=== PATIENT | female | born 1945 | race Two or more races ===

== ENCOUNTER 2025-02-17 11:05 | Inpatient (IN) | payer MEDICARE, OTHER ==
[~2025-02-17] VITALS: Ht 154.9 cm; Wt 60.3 kg
[2025-02-17] MEDS: LACTATED RINGER'S 1,350 ML IV ONE (11:47)
--- NOTE | 2025-02-17 12:02 | DVH ---
INDICATION: weakness TECHNIQUE: Frontal view of the chest. COMPARISON: None FINDINGS: . The heart and mediastinal contours are grossly unremarkable. There is no evidence of pleural disea se. The lungs are clear. The bony structures of the chest are intact without fracture. IMPRESSION: 1. No evidence of acute disease.
[2025-02-17 12:06] LABS: Hematocrit 39.9 % (36.0-46.0); Hemoglobin 13.4 g/dL (12.2-16.2); Mean Corpuscular Hemoglobin 28.6 pg (28.0-32.0); Mean Corpuscular Volume 85.1 fL (80.0-100.0); Nucleated Red Blood Cells % 0.0 %
--- NOTE | 2025-02-17 12:16 | ED.PDOC ---
History of Present Illness HPI Comments 79 year old female with PMHx HLD presents to the ED with a chief complaint of generalized weakness onset 3 days. Patient states she has been experiencing generalized weakness, fever, chills, body aches, nausea, back pain for the past 3 days. Patient is visiting from [place] of state, leaves tomorrow morning. Denies numbness/tingling, dizziness, chest pain, shortness of breath, vomiting, diarrhea, dysuria, hematuria, cough, congestion, sore throat. No other symptoms or modifying factors present at this time. Chief Complaint: General Weakness Time Seen by MD: 12:05 Reviewed Notes: Medications, Allergies Allergies: Coded Allergies: Alendronate (Verified Allergy, Unknown, 02/17/25) Information Source: Patient, Spouse Mode of Arrival: Ambulatory Severity: Moderate Timing: Days Duration: Since onset Prehospital treatment: None Past Medical History PAST MEDICAL HISTORY: High Lipids Surgical History: Denies all surgeries RU[employer]ER [employer] History: No Pertinent RU[employer]ER [employer]ER History Family History Family History: Reviewed,noncontributory to illness, No family hx of Cancer, No family hx of DM, No family hx of Heart jennie, No family hx of HTN, No family hx ofKidney jennie, No family hx of Liver jennie, No family hx of Lung jennie, No family hx of Stroke Social History Smoker: Non-Smoker Alcohol: Denies ETOH Use Drugs: Denies Drug Use Lives In: Home Constitutional: reports: chills, fever, weakness, others (generalized body aches); denies: diaphoresis, fatigue, malaise, sweats EENTM: denies: blurred vision, double vision, ear bleeding, ear discharge, ear drainage, ear pain, ear ringing, eye pain, eye redness, hearing loss, mouth pain, mouth swelling, nasal discharge, nose bleeding, nose congestion, nose pain, photophobia, tearing, throat pain, throat swelling, voice changes, others Respiratory: denies: cough, hemoptysis, orthopnea, SOB at rest, shortness of breath, SOB with excertion, stridor, wheezing, others Cardiovascular: denies: chest pain, dizzy spells, diaphoresis, Dyspnea on exertion, edema, irregular heart beat, left arm pain, lightheadedness, palpitations, PND, syncope, others Gastrointestinal: reports: nausea; denies: abdomen distended, abdominal pain, blood streaked bowels, constipated, diarrhea, dysphagia, difficulty swallowing, hematemesis, melena, poor appetite, poor fluid intake, rectal bleeding, rectal pain, vomiting, others Genitourinary: denies: abnormal vagina bleeding, burning, dyspareunia, dysuria, flank pain, frequency, hematuria, incontinence, pain, , vagina discharge, urgency, others Neurological: reports: weakness; denies: dizziness, fainting, headache, left sided numbness, left sided weakness, numbness, paresthesia, pre-existing deficit, right sided numbness, right sided weakness, seizure, speech problems, tingling, tremors, others Musculoskeletal: reports: back pain; denies: gout, joint pain, joint swelling, muscle pain, muscle stiffness, neck pain, others Integumetry: denies: bruises, change in color, change in hair/nails, dryness, laceration, lesions, lumps, rash, wounds, others Allergic/Immunocompromised: denies: Difficulty Healing, Frequent Infections, Hives, Itching, others Hematologic/Lymphatic: denies: anemia, blood clots, easy bleeding, easy bruising, swollen glands, others Endocrine: denies: excessive hunger, excessive sweating, excessive thirst, excessive urination, flushing, intolerance to cold, intolerance to heat, unexplained weight gain, unexplained weight loss, others Psychiatric: denies: anxiety, bipolar disorder, depression, hopeless, panic disorder, schizophrenia, sleepless, suicidal, others All Other Systems: Reviewed and Negative Physical Exam General Appearance: Normal HEENT: Normal ENT Inspection, Pharynx Normal, TMs Normal Neck: Full Range of Motion, Non-Tender, Normal, Normal Inspection Respiratory: Chest Non-Tender, Lungs Clear, No Accessory Muscle Use, No Respiratory Distress, Normal Breath Sounds Cardiovascular: No Edema, No JVD, No Murmur, No Gallop, Normal Peripheral Pulses, Regular Rate/Rhythm Breast Exam: Deferred Gastrointestinal: No Organomegaly, Non Tender, No Pulsatile Mass, Normal Bowel Sounds, Soft Genitalia: Deferred Pelvic: Deferred Rectal: Deferred Extremities: No calf tenderness, Normal capillary refill, Normal inspection, Normal range of motion, Non-tender, No pedal edema Musculoskeletal : Apperance: Normal Neurologic: Alert, [employer] cosmetics II-XII nml as Tested, No Motor Deficits, Normal Affect, Normal Mood, No Sensory Deficits Cerebellar Function: Normal Reflexes: Normal Skin: Dry, Normal Color, Warm Lymphatic: No Adenopathy Was a procedure done? Was a procedure done?: No Differential Dx Considerations may include: acs, cva, viral syndrome, pneumonia, uti, sepsis X-Ray, Labs, Meds, VS Vital Signs Date Time Temp Pulse Resp B/P (MAP) Pulse Ox O2 Delivery O2 Flow Rate FiO2 02/17/25 12:45 110 16 91 Room Air* 0 21 02/17/25 12:18 118 19 95 Room Air 02/17/25 12:18 102.1 118 16 119/68 (85) 95 102.1 02/17/25 11:12 Room Air* 0 21 02/17/25 11:10 100.7 119 17 112/74 98 100.7 Lab Test 02/17/25 11:50 02/17/25 11:34 Range/Units POC Glucose 131 H 70-106 mg/dl White Blood Count 16.2 H 4.4-10.8 10^3/uL Red Blood Count 4.69 4.0-5.20 10^6/uL Hemoglobin 13.4 12.2-16.2 g/dL Hematocrit 39.9 36.0-46.0 % Mean Corpuscular Volume 85.1 80.0-100.0 fL Mean Corpuscular Hemoglobin 28.6 28.0-32.0 pg Mean Corpuscular Hemoglobin Concent 33.6 32.0-36.0 g/dL Red Cell Distribution Width 14.2 11.8-14.3 % Platelet Count 127 L 140-450 10^3/uL Mean Platelet Volume 9.3 6.9-10.8 fL Neutrophils (%) (Auto) 89.0 H 37.0-80.0 % Lymphocytes (%) (Auto) 5.0 L 10.0-50.0 % Monocytes (%) (Auto) 5.8 0.0-12.0 % Eosinophils (%) (Auto) 0.0 0.0-7.0 % Basophils (%) (Auto) 0.2 0.0-2.0 % Neutrophils # (Auto) 14.4 H 1.6-8.6 10 ^3/uL Lymphocytes # (Auto) 0.8 0.4-5.4 10 ^3/uL Monocytes # (Auto) 0.9 0-1.3 10 ^3/uL Eosinophils # (Auto) 0 0-0.8 10 ^3/uL Basophils # (Auto) 0 0-0.2 10 ^3/uL Nucleated Red Blood Cells 0.0 % Prothrombin Time 11.5 9.3-11.8 sec Prothrombin Time INR 1.09 0.9-1.15 Activated Partial Thromboplast Time 32.2 24.5-34.5 SEC Sodium Level 133 L 136-145 mmol/L Potassium Level 3.6 3.5-5.1 mmol/L Chloride Level 96 L 98-107 mmol/L Carbon Dioxide Level 26 20-31 mmol/L Anion Gap 11 5-15 Blood Urea Nitrogen 15 9-23 mg/dL Creatinine 0.97 0.550-1.02 mg/dL Glomerular Filtration Rate Calc 60 >90 mL/min BUN/Creatinine Ratio 15.5 10.0-20.0 Serum Glucose 119 H 74-106 mg/dL Lactic Acid Level 1.5 0.4-2.0 mmol/L Calcium Level 9.1 8.7-10.4 mg/dL Total Bilirubin 1.0 0.2-1.0 mg/dL Aspartate Amino Transferase (AST) 18 13-40 U/L Alanine Aminotransferase (ALT) 13 7-40 U/L Alkaline Phosphatase 82 46-116 U/L Total Protein 7.5 5.7-8.2 g/dL Albumin 4.6 3.2-4.8 g/dL Current Medications Medications (Trade) Dose Ordered Sig/John Route Start Time Stop Time Status Last Admin Lactated Ringer's 1,350 ml @ 1,350 mls/hr ONCE ONCE IV 02/17/25 11:30 02/17/25 12:29 DC 02/17/25 11:47 Cefepime HCl 50 ml @ 12.5 mls/hr ONCE STAT IV 02/17/25 11:16 02/17/25 15:15 02/17/25 12:31 Acetaminophen (Ofirmev) 1,000 mg ONCE ONCE IV 02/17/25 12:30 02/17/25 12:31 DC 02/17/25 12:55 Ondansetron HCl (Zofran) 4 mg ONCE ONCE IV 02/17/25 12:30 02/17/25 12:31 DC 02/17/25 12:54 [facility] [id number] [address] Ph: [phone] DIAGNOSTIC IMAGING Diagnostic Imaging Report : [id number] Signed PATIENT: JAISON BART: [id number] UNIT: [id number] : 1945 LOC: ER ROOM / BED: / AGE / SEX: 79 / F ADM STATUS: REG ER SERVICE [id number] ORDERING PHYSICIAN: KATHIA PEREZ MD PROCEDURE(s): CXRP - CHEST PORTABLE REASON: weakness ORDER NUMBER(s): [id number], ACCESSION NUMBER(s): [id number] INDICATION: weakness TECHNIQUE: Frontal view of the chest. COMPARISON: None FINDINGS: . The heart and mediastinal contours are grossly unremarkable. There is no evidence of pleural disease. The lungs are clear. The bony structures of the chest are intact without fracture. IMPRESSION: 1. No evidence of acute disease. ATED BY: LISA LIMA MD DICTATED DATE/TIME: 02/17/25 1200 SIGNED BY: LISA LIMA MD SIGNED DATE/TIME: 02/17/25 1200 CC: Time of 1ST Reevaluation: 12:35 Reevaluation 1ST: Unchanged Patient Education/Counseling: Diagnosis, Treatment, Prognosis Family Education/Counseling: Diagnosis, Treatment, Prognosis SEPSIS Sepsis Screen Date sepsis recognized/suspect: Feb 17, 2025 Time Sepsis recognized/suspect: 1110 Recent Procedure: No On Antibiotic Therapy: No Respiratory Rate >20: No Heart Rate >90: Yes Temp<36 C (96.8 F) or >38.3 C: No SBP <90 or MAP <65 mmHG: No New Acute Mental Status Change: No Is the patient on CPAP, BIPAP,: No Physician Orders Urinalysis (02/17/25 11:16) Chest Portable (02/17/25 11:16) Accucheck (02/17/25 11:16) Blood Culture (02/17/25 11:16) Cefepime 1gm/50ml (Maxipime 1gm/50ml) (02/17/25 11:16) Notify Md If Map <65 Or Bp<90 (02/17/25 11:16) If Map<65 Start Vasopressor (02/17/25 11:16) Sepsis Reassesment After Fluid (02/17/25 12:16) Covid19 Antigen Yael (02/17/25 ) Rapid Influenza A&B (02/17/25 11:48) Vital Signs Date Time Temp Pulse Resp B/P (MAP) Pulse Ox O2 Delivery O2 Flow Rate FiO2 02/17/25 12:45 110 16 91 Room Air* 0 21 02/17/25 12:18 118 19 95 Room Air 02/17/25 12:18 102.1 118 16 119/68 (85) 95 102.1 02/17/25 11:12 Room Air* 0 21 02/17/25 11:10 100.7 119 17 112/74 98 100.7 Laboratory Tests Test 02/17/25 11:34 Lactic Acid Level 1.5 mmol/L (0.4-2.0) White Blood Count 16.2 10^3/uL (4.4-10.8) H Medications Medications Dose Ordered Sig/John Route Start Time Stop Time Status Last Admin Dose Admin Acetaminophen 1,000 mg ONCE ONCE IV 02/17/25 12:30 02/17/25 12:31 DC 02/17/25 12:55 Cefepime HCl 50 ml @ 12.5 mls/hr ONCE STAT IV 02/17/25 11:16 02/17/25 15:15 02/17/25 12:31 Lactated Ringer's 1,350 ml @ 1,350 mls/hr ONCE ONCE IV 02/17/25 11:30 02/17/25 12:29 DC 02/17/25 11:47 Ondansetron HCl 4 mg ONCE ONCE IV 02/17/25 12:30 02/17/25 12:31 DC 02/17/25 12:54 Departure 1 Departure Time of Disposition: 13:57 (Patient with concern for sepsis. We will empirically cover patient with antibiotics fluids and admit patient for further workup) Impression: Primary Impression: Sepsis Additional Impression: Generalized weakness Disposition: 09 ADMITTED INPATIENT Admit to: Tele Condition: Guarded Critical Care Note Critical Care Time?: Yes Critical care comment: Sepsis Authorized and Performed by: Kathia Perez MD Total critical care time: Approximately 42 minutes Due to a high probability of clinically significant, life threatening deteriorat ion, the patient required my highest level of preparedness to intervene emergently and I personally spent this critical care time directly and personally managing the patient. This critical care time included obtaining a history; examining the patient; pulse oximetry; ordering and review of studies; arranging urgent treatment with development of a management plan; evaluation of patient's response to treatment; frequent reassessment; and, discussions with other providers. This critical care time was performed to assess and manage the high probability of imminent, life-threatening deterioration that could result in multi-organ failure. It was exclusive of separately billable procedures and treating other patients and teaching time. Please see my other sections and the rest of the note for further information on patient assessment and treatment. Stability Stability form required: No Heart Score Heart Score: Heart Score Response (Comments) Value History N/A 0 EKG N/A 0 Age N/A 0 Risk Factors N/A 0 Troponin N/A 0 Total 0 I personally scribed for KATHIA PEREZ MD ([email or web address]) on 02/17/25 at 12:16. Electronically submitted by Tiny Kidd ([email or web address]). I personally scribed for KATHIA PEREZ MD ([email or web address]) on 02/17/25 at 12:22. Electronically submitted by Tiny Kidd ([email or web address]). KATHIA PEREZ MD Feb 17, 2025 12:16
[2025-02-17 12:22] LABS: INR 1.09 (0.9-1.15); Partial Thromboplastin Time 32.2 SEC (24.5-34.5); Prothrombin Time 11.5 sec (9.3-11.8)
[2025-02-17 12:25] LABS: Alanine Aminotransferase 13 U/L (7-40); Albumin 4.6 g/dL (3.2-4.8); Alkaline Phosphatase 82 U/L (46-116); Anion Gap 11 (5-15); BUN/Creatinine Ratio 15.5 (10.0-20.0); Bilirubin, Total 1.0 mg/dL (0.2-1.0); Blood Urea Nitrogen 15 mg/dL (9-23); Calcium 9.1 mg/dL (8.7-10.4); Carbon Dioxide 26 mmol/L (20-31); Potassium 3.6 mmol/L (3.5-5.1); Total Protein 7.5 g/dL (5.7-8.2)
[2025-02-17 12:27] LABS: Chloride 96 mmol/L (98-107); Glucose 119 mg/dL (74-106); Sodium 133 mmol/L (136-145)
[2025-02-17] MEDS: CEFEPIME 1GM/50ML 50 ML IV STA (12:31)
[2025-02-17 12:45] VITALS: PULSE 110; RESP 16; O2SAT 91
[2025-02-17] MEDS: ONDANSETRON HCL 4 MG/2 ML VIAL IV ONE (12:54)
[2025-02-17] MEDS: ACETAMINOPHEN IV 1000 MG/100ML (10MG/ML) IV ONE (12:55)
[2025-02-17 14:52] LABS: Urine Budding Yeast OCCASIONAL /hpf (None Seen); Urine Protein, UAD 1+ (Negative)
[2025-02-17 15:14] LABS: COVID19 ANTIGEN SOFIA FIA NEGATIVE (NEGATIVE)
[2025-02-17] MEDS ORDERED: ONDANSETRON HCL 4 MG/2 ML VIAL IV PRN (15:30)
[2025-02-17] MEDS ORDERED: HYDROcodone-ACET 5/325MG TAB PO PRN (15:30)
--- NOTE | 2025-02-17 16:04 | DVHPNRES ---
Progress Note Date Seen: Feb 17, 2025 Resident Creating Document: QI LEW RESIDENT Medical Necessity Reason Pt with a Central, PICC or Fol: No Subjective Review of Systems This is a 79-year-old female with past medical history of hyperlipidemia and osteoarthritis presented with chief complain of generalized weakness that started 1 week back. She complains of 3 week history of increased frequency of micturition, foul-smelling urine. She is traveling from [place] and has been indulging in outdoor activities. She reports associated fever, chills, myalgia & nausea. She denies palpitation, burning micturition injury, insect bite or foul-smelling discharge PV. She had an an episode of UTI 3 years back and she was treated with oral antibiotics. Previous hospitalization: No recent hospitalization PMHx: Hyperlipidemia, osteoarthritis PSHx: No surgical history Family history: Noncontributory Social history: Denies smoking, alcohol, recreational drug use. Full code. Lives in house alone. Home medication: Lipitor 5 mg Allergic history: alendronate ROS: Constitutional: Generalized weakness, myalgia. Denies weight loss, fever and chills. HEENT: Denies changes in vision and hearing. Respiratory: Denies shortness of breath and cough Cardiovascular: Denies chest discomfort or palpitations GI: Nausea. Denies abdominal pain, vomiting and diarrhea. : Increased urinary frequency, foul-smelling urine and generalized weakness Musculoskeletal: Denies myalgias and joint pain Skin: Denies rash and pruritus. Neurological: Denies dizziness, headache, vision or hearing problems 02/17/2025: Patient was seen at bedside today. Vitals show tachycardia, fever, tachypnea. Patient is on room air. Objective vital signs Vital Sign Date Time Temp Pulse Resp B/P (MAP) Pulse Ox O2 Delivery O2 Flow Rate FiO2 02/17/25 14:30 98.9 92 21 102/60 (74) 98.9 02/17/25 13:00 93 02/17/25 12:45 Room Air* 0 21 Examination General: Patient alert and oriented in person, place and time. Patient following commands. HEENT: Normocephalic, atraumatic, moist mucous membranes Respiratory/pulmonary: Clear lungs bilaterally, vesicular murmurs present in almost all lung davey, no associated crackles or wheezes. Cardiovascular: Normal heart sounds S1 and S2 with no associated murmurs Abdomen: Abdomen nondistended, there is no pain to palpation in any of the abdominal quadrants, no palpable masses. Extremities: There is no peripheral edema present at the lower extremities. Peripheral Pulses: 3+ Radial (R). 3+ Radial (L). 3+ Dorsalis pedis (R). 3+ Dorsalis pedis(L) Skin: No rashes or pruritus, there is no sacral edema present at this time. Neurological: Intact cranial nerves with no focal neurologic deficits laboratory and microbiology Laboratory Tests 02/17/25 11:34 Test 02/17/25 11:34 Range/Units Serum Glucose 119 H 74-106 mg/dL Problem List/Assessment/Plan Problem List/Assessment/Plan Sepsis due to UTI Complicated UTI Generalized weakness due to above Leukocytosis U/A: positive for UTI Lactic acid is WNL Blood culture, urine culture ordered IV ceftriaxone [facility], Tylenol for pain management COVID, influenza negative Repeat BMP Hyponatremia Monitor BMP Hyperlipidemia Ordered CMP DIET: Cardiac DVT PROPHYLAXIS: Lovenox GI PROPHYLAXIS: Protonix CODE STATUS: Goals of care discussed with patient at bedside for more than 36 minutes. Full code DISPOSITION: Telemetry This medical document was created using an electronic medical record system with M[employer] direct computerized dictation system. Although this document has been carefully reviewed, there may still be some phonetic and typographical errors. These areas are purely typographical due to imperfections of the software programs, and do not reflect any compromise in the patient's medical care. Patient's status and plan discussed with the patient. Case discussed with Dr. Chambers. Plan discussed with: Patient, Other (Friend) Date of Service: Feb 17, 2025 Billing Provider: LEW CHAMBERS MD Common Visit Codes: [id number] INP/OBS CARE(HIGH) QI LEW RESIDENT Feb 17, 2025 16:04
[2025-02-17] MEDS: SODIUM CHLORIDE 0.9% 1,000 ML IV SCH ×2 (16:07→18:15)
[2025-02-17] MEDS: PANTOPRAZOLE 40 MG/10 ML VIAL INJ IV ONE (16:17)
[2025-02-17 17:15] VITALS: BP 103/56; PULSE 84; RESP 17; TEMP 97.5; O2SAT 96
[2025-02-17] MEDS ORDERED: ZOLP5TAB PO (17:55)
--- NOTE | 2025-02-17 17:55 | DVHHPRES ---
History of Present Illness Resident Creating Document: MIRZA VILLALOBOS RESIDENT History of Present Illness This is a 79-year-old female with past medical history of hyperlipidemia and osteoarthritis presented with chief complain of generalized weakness that started 1 week back. She complains of 3 week history of increased frequency of micturition, foul-smelling urine. She is traveling from [place] and has been indulging in outdoor activities. She reports associated fever, chills, myalgia & nausea. She denies palpitation, burning micturition injury, insect bite or foul-smelling discharge PV. She had an an episode of UTI 3 years back and she was treated with oral antibiotics. Previous hospitalization: No recent hospitalization PMHx: Hyperlipidemia, osteoarthritis PSHx: No surgical history Family history: Noncontributory Social history: Denies smoking, alcohol, recreational drug use. Full code. Lives in house alone. Home medication: Lipitor 5 mg Allergic history: alendronate 02/17/2025: Patient was seen at bedside today. Vitals show tachycardia, fever, tachypnea. Patient is on room air. Review of Systems Review of Systems ROS: Constitutional: Generalized weakness, myalgia. Denies weight loss, fever and chills. HEENT: Denies changes in vision and hearing. Respiratory: Denies shortness of breath and cough Cardiovascular: Denies chest discomfort or palpitations GI: Nausea. Denies abdominal pain, vomiting and diarrhea. : Increased urinary frequency, foul-smelling urine and generalized weakness Musculoskeletal: Denies myalgias and joint pain Skin: Denies rash and pruritus. Neurological: Denies dizziness, headache, vision or hearing problems Allergies: Coded Allergies: Alendronate (Verified Allergy, Unknown, 02/17/25) Medications Current Medications Medications Dose Ordered Sig/John Route Start Time Stop Time Status Last Admin Dose Admin Acetaminophen/ Hydrocodone Bitart 1 tab Q4HP PRN PO 02/17/25 15:30 Ondansetron HCl 4 mg Q4HP PRN IV 02/17/25 15:30 Enoxaparin Sodium 40 mg DAILY SC 02/18/25 10:00 Acetaminophen 650 mg Q6HP PRN PO 02/17/25 15:30 Ceftriaxone Sodium 50 ml @ 100 mls/hr DAILY@09 IV 02/18/25 09:00 Pantoprazole Sodium 40 mg DAILY IV 02/18/25 10:00 Sodium Chloride 1,000 ml @ 125 mls/hr Q8H IV 02/17/25 17:30 Exam Vital Signs Vital Signs Date Time Temp Pulse Resp B/P (MAP) Pulse Ox O2 Delivery O2 Flow Rate FiO2 02/17/25 16:25 85 15 109/65 (80) 96 02/17/25 14:30 98.9 98.9 02/17/25 12:45 Room Air* 0 21 Exam General: Patient alert and oriented in person, place and time. Patient following commands. HEENT: Normocephalic, atraumatic, moist mucous membranes Respiratory/pulmonary: Clear lungs bilaterally, vesicular murmurs present in almost all lung davey, no associated crackles or wheezes. Cardiovascular: Normal heart sounds S1 and S2 with no associated murmurs Abdomen: Abdomen nondistended, there is no pain to palpation in any of the abdominal quadrants, no palpable masses. Extremities: There is no peripheral edema present at the lower extremities. Peripheral Pulses: 3+ Radial (R). 3+ Radial (L). 3+ Dorsalis pedis (R). 3+ Dorsalis pedis(L) Skin: No rashes or pruritus, there is no sacral edema present at this time. Neurological: Intact cranial nerves with no focal neurologic deficits Labs/Xrays Labs Test 02/17/25 14:19 02/17/25 11:51 02/17/25 11:50 02/17/25 11:34 Range/Units Urine Color Light-yellow Yellow Urine Clarity Turbid H Clear Urine pH 6.5 5.0-9.0 Urine Specific [place] 1.016 1.001-1.035 Urine Protein 1+ H Negative Urine Ketones 1+ H Negative Urine Blood 3+ H Negative /uL Urine Nitrite 2+ H Negative Urine Bilirubin Negative Negative Urine Urobilinogen Normal Negative mg/dL Urine Leukocyte Esterase 2+ Negative /uL Urine RBC 12 0 - 4 /hpf Urine Microscopic WBC 58 H 0-5 /HPF Urine Squamous Epithelial Cells None seen <5 /hpf Urine Bacteria Few H None Seen /hpf Urine Yeast (Budding) Occasional None Seen /hpf Urine Glucose Normal Normal mg/dL Influenza Type A Antigen Negative Negative Influenza Type B Antigen Negative Negative SARS-CoV-2 Antigen (Rapid) Negative NEGATIVE POC Glucose 131 H 70-106 mg/dl White Blood Count 16.2 H 4.4-10.8 10^3/uL Red Blood Count 4.69 4.0-5.20 10^6/uL Hemoglobin 13.4 12.2-16.2 g/dL Hematocrit 39.9 36.0-46.0 % Mean Corpuscular Volume 85.1 80.0-100.0 fL Mean Corpuscular Hemoglobin 28.6 28.0-32.0 pg Mean Corpuscular Hemoglobin Concent 33.6 32.0-36.0 g/dL Red Cell Distribution Width 14.2 11.8-14.3 % Platelet Count 127 L 140-450 10^3/uL Mean Platelet Volume 9.3 6.9-10.8 fL Neutrophils (%) (Auto) 89.0 H 37.0-80.0 % Lymphocytes (%) (Auto) 5.0 L 10.0-50.0 % Monocytes (%) (Auto) 5.8 0.0-12.0 % Eosinophils (%) (Auto) 0.0 0.0-7.0 % Basophils (%) (Auto) 0.2 0.0-2.0 % Neutrophils # (Auto) 14.4 H 1.6-8.6 10 ^3/uL Lymphocytes # (Auto) 0.8 0.4-5.4 10 ^3/uL Monocytes # (Auto) 0.9 0-1.3 10 ^3/uL Eosinophils # (Auto) 0 0-0.8 10 ^3/uL Basophils # (Auto) 0 0-0.2 10 ^3/uL Nucleated Red Blood Cells 0.0 % Prothrombin Time 11.5 9.3-11.8 sec Prothrombin Time INR 1.09 0.9-1.15 Activated Partial Thromboplast Time 32.2 24.5-34.5 SEC Sodium Level 133 L 136-145 mmol/L Potassium Level 3.6 3.5-5.1 mmol/L Chloride Level 96 L 98-107 mmol/L Carbon Dioxide Level 26 20-31 mmol/L Anion Gap 11 5-15 Blood Urea Nitrogen 15 9-23 mg/dL Creatinine 0.97 0.550-1.02 mg/dL Glomerular Filtration Rate Calc 60 >90 mL/min BUN/Creatinine Ratio 15.5 10.0-20.0 Serum Glucose 119 H 74-106 mg/dL Lactic Acid Level 1.5 0.4-2.0 mmol/L Calcium Level 9.1 8.7-10.4 mg/dL Total Bilirubin 1.0 0.2-1.0 mg/dL Aspartate Amino Transferase (AST) 18 13-40 U/L Alanine Aminotransferase (ALT) 13 7-40 U/L Alkaline Phosphatase 82 46-116 U/L B-Type Natriuretic Peptide 33.75 0-100 pg/mL Total Protein 7.5 5.7-8.2 g/dL Albumin 4.6 3.2-4.8 g/dL Lipase 33 12-53 U/L SEPSIS Sepsis Screen Date sepsis recognized/suspect: Feb 17, 2025 Time Sepsis recognized/suspect: 1109 Recent Procedure: No On Antibiotic Therapy: No Respiratory Rate >20: No Heart Rate >90: Yes Temp<36 C (96.8 F) or >38.3 C: No SBP <90 or MAP <65 mmHG: No New Acute Mental Status Change: No Is the patient on CPAP, BIPAP,: No Physician Orders Chest Portable (02/17/25 11:16) Accucheck (02/17/25 11:16) Blood Culture (02/17/25 11:16) Notify Md If Map <65 Or Bp<90 (02/17/25 11:16) If Map<65 Start Vasopressor (02/17/25 11:16) Sepsis Reassesment After Fluid (02/17/25 12:16) Admit (02/17/25 15:23) Allergies (02/17/25 15:23) Code Status (02/17/25 15:23) Hydrocodone-Acet 5/325mg Tab ([place] 5/32 (02/17/25 15:30) Ondansetron Hcl (Zofran) (02/17/25 15:30) Enoxaparin Sodium (Lovenox) (02/18/25 10:00) Complete Blood Count (02/18/25 04:00) Comprehensive Metabolic Panel (02/18/25 04:00) Cardiac Diet-2gna,Lofat,Lochol (02/17/25 Dinner) Condition: Serious (02/17/25 15:23) Acetaminophen Tablet (Tylenol Tablet) (02/17/25 15:30) Oxygen By Nasal Cannula (02/17/25 15:23) Stat Ekg For Chest Pain (02/17/25 15:23) Notify Md Of Changes From Base (02/17/25 15:23) Shop Teacher For 24 Hours (02/17/25 15:23) Emergency Dysrhythmia Protocol (02/17/25 15:23) Rhythm Strips Once Every Shift (02/17/25 15:23) Ceftriaxone 1gm/50ml (Rocephin) (02/18/25 09:00) Urine Bacterial Culture (02/17/25 15:23) Pantoprazole (Protonix) (02/18/25 10:00) Sodium Chloride 0.9% (02/17/25 17:30) Sodium Chloride 0.9% (02/17/25 17:30) Vital Signs Date Time Temp Pulse Resp B/P (MAP) Pulse Ox O2 Delivery O2 Flow Rate FiO2 02/17/25 16:25 85 15 109/65 (80) 96 02/17/25 14:30 98.9 92 21 102/60 (74) 98.9 02/17/25 13:00 110 14 101/59 (73) 93 02/17/25 12:45 110 16 91 Room Air* 0 21 02/17/25 12:18 118 19 95 Room Air 02/17/25 12:18 102.1 118 16 119/68 (85) 95 102.1 02/17/25 11:12 Room Air* 0 21 02/17/25 11:10 100.7 119 17 112/74 98 100.7 Laboratory Tests Test 02/17/25 11:34 Lactic Acid Level 1.5 mmol/L (0.4-2.0) White Blood Count 16.2 10^3/uL (4.4-10.8) H Medications Medications Dose Ordered Sig/John Route Start Time Stop Time Status Last Admin Dose Admin Acetaminophen 1,000 mg ONCE ONCE IV 02/17/25 12:30 02/17/25 12:31 DC 02/17/25 12:55 1,000 MG Cefepime HCl 50 ml @ 12.5 mls/hr ONCE STAT IV 02/17/25 11:16 02/17/25 15:15 DC 02/17/25 12:31 12.5 MLS/HR Ceftriaxone Sodium 50 ml @ 100 mls/hr ONCE ONCE IV 02/17/25 15:30 02/17/25 16:00 DC 02/17/25 16:06 100 MLS/HR Lactated Ringer's 1,350 ml @ 1,350 mls/hr ONCE ONCE IV 02/17/25 11:30 02/17/25 12:29 DC 02/17/25 11:47 1,350 MLS/HR Ondansetron HCl 4 mg ONCE ONCE IV 02/17/25 12:30 02/17/25 12:31 DC 02/17/25 12:54 4 MG Pantoprazole Sodium 40 mg ONCE ONCE IV 02/17/25 16:00 02/17/25 16:07 DC 02/17/25 16:17 40 MG Sodium Chloride 1,000 ml @ 120 mls/hr Q8H20M IV 02/17/25 15:30 02/17/25 17:22 DC 02/17/25 16:07 120 MLS/HR Assessment/Plan Assessment/Plan Sepsis due to UTI, POA Complicated UTI, POA Generalized weakness due to above Leukocytosis U/A: positive for UTI Lactic acid is WNL Blood culture, urine culture ordered IV ceftriaxone [place], Tylenol for pain management COVID, influenza negative Repeat BMP Hyponatremia Monitor BMP Hyperlipidemia Ordered CMP DIET: Cardiac DVT PROPHYLAXIS: Lovenox GI PROPHYLAXIS: Protonix CODE STATUS: Goals of care discussed with patient at bedside for more than 36 minutes. Full code DISPOSITION: Telemetry This medical document was created using an electronic medical record system with [employer] computerized dictation system. Although this document has been carefully reviewed, there may still be some phonetic and typographical errors. These areas are purely typographical due to imperfections of the software programs, and do not reflect any compromise in the patient's medical care. Patient's status and plan discussed with the patient. Case discussed with Dr. Chambers. Plan discussed with: Patient, Other (RN) Date of Service: Feb 17, 2025 Billing Provider: LEW CHAMBERS MD Common Visit Codes: [id number] INP/OBS CARE (HIGH) MIRZA VILLALOBOS RESIDENT Feb 17, 2025 17:55
[2025-02-17] MEDS ORDERED: ATOR10TA PO ×2 (17:56)
[2025-02-17] MEDS: SODIUM CHLORIDE 0.9% 500 ML IV ONE (18:16)
[2025-02-17 20:00] VITALS: PULSE 79; PULSE 97; RESP 18
[2025-02-17 21:00] VITALS: BP 112/70; PULSE 102; RESP 19; TEMP 98; O2SAT 96
[2025-02-17] MEDS: ZOLPIDEM TARTRATE 5 MG TAB PO SCH (21:34)
[2025-02-17 22:00] VITALS: RESP 18
[2025-02-18] VITALS (7 sets, daily range): BP systolic 96–119; BP diastolic 53–70; PULSE 75–121; RESP 18–20; TEMP 98–103.1; O2SAT 90–99
[2025-02-18] MEDS: ACETAMINOPHEN 325 MG TAB PO PRN (00:07)
[2025-02-18 06:27] LABS: Hematocrit 33.3 % (36.0-46.0); Hemoglobin 11.1 g/dL (12.2-16.2); Mean Corpuscular Hemoglobin 28.4 pg (28.0-32.0); Mean Corpuscular Volume 84.8 fL (80.0-100.0); Nucleated Red Blood Cells % 0.0 %
[2025-02-18 06:46] LABS: Alanine Aminotransferase 12 U/L (7-40); Albumin 3.6 g/dL (3.2-4.8); Alkaline Phosphatase 71 U/L (46-116); Anion Gap 12 (5-15); BUN/Creatinine Ratio 13.5 (10.0-20.0); Blood Urea Nitrogen 10 mg/dL (9-23); Carbon Dioxide 23 mmol/L (20-31); Chloride 104 mmol/L (98-107); Glucose 92 mg/dL (74-106); Sodium 139 mmol/L (136-145); Total Protein 5.9 g/dL (5.7-8.2)
[2025-02-18 06:47] LABS: Bilirubin, Total 0.7 mg/dL (0.2-1.0)
[2025-02-18 06:53] LABS: Calcium 7.8 mg/dL (8.7-10.4); Potassium 3.4 mmol/L (3.5-5.1)
[2025-02-18] MEDS: POTASSIUM EFFERVESENT TAB 25 MEQ PO ONE (08:55)
[2025-02-18] MEDS: PANTOPRAZOLE 40 MG/10 ML VIAL INJ IV SCH (08:56)
--- NOTE | 2025-02-18 09:28 | DVHPNRES ---
Progress Note Date Seen: Feb 18, 2025 Resident Creating Document: QI LWE RESIDENT Medical Necessity Reason Pt with a Central, PICC or Fol: No Subjective Review of Systems Brief history on arrival: This is a 79-year-old female with past medical history of hyperlipidemia and osteoarthritis presented with chief complain of generalized weakness that started 1 week back. She complains of 3 week history of increased frequency of micturition, foul-smelling urine. She is traveling from [place] and has been indulging in outdoor activities. She reports associated fever, chills, myalgia & nausea. She denies palpitation, burning micturition injury, insect bite or foul-smelling discharge PV. She had an an episode of UTI 3 years back and she was treated with oral antibiotics. Previous hospitalization: No recent hospitalization PMHx: Hyperlipidemia, osteoarthritis PSHx: No surgical history Family history: Noncontributory Social history: Denies smoking, alcohol, recreational drug use. Full code. Lives in house alone. Home medication: Lipitor 5 mg Allergic history: alendronate ROS: Constitutional: Generalized weakness, myalgia. Denies weight loss, fever and chills. HEENT: Denies changes in vision and hearing. Respiratory: Denies shortness of breath and cough Cardiovascular: Denies chest discomfort or palpitations GI: Nausea. Denies abdominal pain, vomiting and diarrhea. : Increased urinary frequency, foul-smelling urine and generalized weakness Musculoskeletal: Denies myalgias and joint pain Skin: Denies rash and pruritus. Neurological: Denies dizziness, headache, vision or hearing problems 02/17/2025: Vitals show tachycardia, fever, tachypnea. Patient is on room air. 02/18/2025: Patient was seen at bedside today. She complains of increased urinary urgency, her generalized weakness has improved. WBC count continues to trend down, urine culture pending. Objective vital signs Vital Sign Date Time Temp Pulse Resp B/P (MAP) Pulse Ox O2 Delivery O2 Flow Rate FiO2 02/18/25 08:00 Room Air* 0 21 02/18/25 05:00 98.1 80 19 96/61 (73) 94 98.1 Total Intake and Output 02/17/25 02/17/25 02/18/25 15:00 23:00 07:00 Intake Total 1375.0 ml 575.0 ml 260 ml Balance 1375.0 ml 575.0 ml 260 ml medications Current Medications Medications Dose Ordered Sig/John Route Start Time Stop Time Status Last Admin Dose Admin Acetaminophen/ Hydrocodone Bitart 1 tab Q4HP PRN PO 02/17/25 15:30 Ondansetron HCl 4 mg Q4HP PRN IV 02/17/25 15:30 Acetaminophen 650 mg Q6HP PRN PO 02/17/25 15:30 02/18/25 00:07 650 MG Ceftriaxone Sodium 50 ml @ 100 mls/hr DAILY@09 IV 02/18/25 09:00 02/18/25 08:55 100 MLS/HR Pantoprazole Sodium 40 mg DAILY IV 02/18/25 10:00 02/18/25 08:56 40 MG Sodium Chloride 1,000 ml @ 125 mls/hr Q8H IV 02/17/25 17:30 02/18/25 08:55 125 MLS/HR Zolpidem Tartrate 5 mg HS PO 02/17/25 22:00 02/17/25 21:34 5 MG Examination General: Patient alert and oriented in person, place and time. Patient following commands. HEENT: Normocephalic, atraumatic, moist mucous membranes Respiratory/pulmonary: Clear lungs bilaterally, vesicular murmurs present in almost all lung davey, no associated crackles or wheezes. Cardiovascular: Normal heart sounds S1 and S2 with no associated murmurs Abdomen: Abdomen nondistended, there is no pain to palpation in any of the abdominal quadrants, no palpable masses. Extremities: There is no peripheral edema present at the lower extremities. Peripheral Pulses: 3+ Radial (R). 3+ Radial (L). 3+ Dorsalis pedis (R). 3+ Dorsalis pedis(L) Skin: No rashes or pruritus, there is no sacral edema present at this time. Neurological: Intact cranial nerves with no focal neurologic deficits laboratory and microbiology Laboratory Tests 02/18/25 04:38 Test 02/18/25 04:38 Range/Units Serum Glucose 92 74-106 mg/dL Problem List/Assessment/Plan Problem List/Assessment/Plan Sepsis due to UTI Complicated UTI with hematuria Generalized weakness due to above Neutrophilic Leukocytosis, trending down U/A: positive for UTI Lactic acid is WNL [place], Tylenol for pain management COVID, influenza negative Continue IV ceftriaxone Blood and urine culture pending Hyponatremia, resolved Hypokalemia Monitor BMP Potassium supplemented, repeated Hyperlipidemia Ordered CMP DIET: Cardiac DVT PROPHYLAXIS: Discontinued Lovenox due to platelet count trending down. Patient is ambulatory, SCD ordered GI PROPHYLAXIS: Protonix CODE STATUS: Goals of care discussed with patient at bedside for more than 18 minutes. Full code DISPOSITION: Telemetry This medical document was created using an electronic medical record system with [employer] computerized dictation system. Although this document has been carefully reviewed, there may still be some phonetic and typographical errors. These areas are purely typographical due to imperfections of the software programs, and do not reflect any compromise in the patient's medical care. Patient's status and plan discussed with the patient. Case discussed with Dr. Chambers. Plan discussed with: Patient, Other (Nurses) My Orders My Orders Orders - QI LEW RESIDENT Procedure Category Date Status Time Admit ADMIT 02/17/25 Transmitted 15:23 Allergies [place] 02/17/25 In Process 15:23 Code Status CODE 02/17/25 Transmitted 15:23 Hydrocodone-Acet PHA 02/17/25 In Process 5/325mg Tab ([place] 15:30 Ondansetron Hcl PHA 02/17/25 In Process (Zofran) 15:30 Condition: Serious [place] 02/17/25 In Process 15:23 Acetaminophen Tablet PHA 02/17/25 In Process (Tylenol Tablet) 15:30 Oxygen By Nasal RT 02/17/25 Transmitted Cannula 15:23 Stat Ekg For Chest [place] 02/17/25 In Process Pain 15:23 Notify Md Of Changes [place] 02/17/25 In Process From Base 15:23 Shift Leader For [place] 02/17/25 In Process 24 Hours 15:23 Emergency Dysrhythmia [place] 02/17/25 In Process Protocol 15:23 Rhythm Strips Once [place] 02/17/25 In Process Every Shift 15:23 Ceftriaxone 1gm/50ml PHA 02/18/25 In Process (Rocephin) 09:00 Urine Bacterial BEN[place] 02/17/25 In Process Culture 15:23 Pantoprazole PHA 02/18/25 In Process (Protonix) 10:00 Sodium Chloride 0.9% PHA 02/17/25 In Process 17:30 Cardiac DIET 02/18/25 Transmitted Diet-2gna,Lofat,Lochol Breakfast Potassium LAB 02/18/25 Logged 12:00 Sequential [place] 02/18/25 In Process Compression Device 07:55 Date of Service: Feb 18, 2025 Billing Provider: QI LEW Common Visit Codes: [id number] INP/OBS CARE(HIGH) QI LEW RESIDENT Feb 18, 2025 09:28 LEW CHAMBERS MD Feb 20, 2025 15:02
[2025-02-18] MEDS ORDERED: ENOXAPARIN SOD 40 MG/0.4 ML SYRINGE SC SCH (10:00)
--- NOTE | 2025-02-18 12:09 | DVH ---
Indication: genraliazed weakness with urgency Technique: CT axial images of the abdomen and pelvis are obtained without contrast. Coronal and sagittal reformats were obtained. Radiation Dose Information: CTDI volume is 7.11 mGy. Dose-length product is 386.5 mGy*cm Comparison: None FINDINGS: There is limited interpretation of the abdomen and pelvis without administration of intravenous contrast. Lung bases demonstrate atelectasis. Tiny bilateral pleural effusions. Adrenal glands, spleen, pancreas and liver unremarkable in shape. No CT evidence for cholelithiasis. The kidneys demonstrate no hydronephrosis. Right perinephric edema / stranding. The stomach is partially distended. The small bowel loops are moderately distended. Colonic diverticular disease. Moderate to large volume stool in the colon. Abdominal aortic atherosclerotic disease. Bladder partially distended. No free pelvic fluid. No inguinal lymphadenopathy. [id number] bilateral sacroiliac degenerative joint disease. IMPRESSION: Limited evaluation without contrast. Right perinephric edema/ stranding. Correlate for urinary tract infection /pyelonephritis. Colonic diverticular disease. Moderate volume stool in the colon. Atherosclerotic disease. Tiny bilateral pleural effusions. Other findings as described.
--- NOTE | 2025-02-18 15:33 | DVH ---
RENAL ULTRASOUND History: Rule out obstruction in the b/l kidneys, ureteres, and blad Comparison: None Technique: Multiple real-time sonographic images of the kidney and bladder were obtained in conjunction with Doppler imaging. Findings: The right kidney measures 10.6 cm and demonstrates no evidence of hydronephrosis, perinephric fluid collection, or shadowing stone. 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 The left kidney measures 9.5 cm and demonstrates no evidence of hydronephrosis, perinephric fluid collection, or shadowing stone. Urinary bladder: Prevoid urinary bladder volume is 137 mL. Bilateral ureteral jets present. Impression: No hydronephrosis. 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 CT urogram can be obtained to further evaluate as clinically warranted.
[2025-02-19 01:00] VITALS: BP 113/77; PULSE 85; RESP 19; TEMP 97.8; O2SAT 100
[2025-02-19 05:00] VITALS: BP 129/79; PULSE 97; RESP 19; TEMP 98.3; O2SAT 94
[2025-02-19 05:22] LABS: Hematocrit 31.6 % (36.0-46.0); Hemoglobin 10.8 g/dL (12.2-16.2); Mean Corpuscular Hemoglobin 28.8 pg (28.0-32.0); Mean Corpuscular Volume 84.6 fL (80.0-100.0); Nucleated Red Blood Cells % 0.0 %
[2025-02-19 05:33] LABS: Chloride 107 mmol/L (98-107); Potassium 3.7 mmol/L (3.5-5.1); Sodium 141 mmol/L (136-145)
[2025-02-19 05:34] LABS: Anion Gap 8 (5-15); Carbon Dioxide 26 mmol/L (20-31)
[2025-02-19 05:37] LABS: Calcium 8.1 mg/dL (8.7-10.4)
[2025-02-19 05:39] LABS: BUN/Creatinine Ratio 14.8 (10.0-20.0); Blood Urea Nitrogen 9 mg/dL (9-23); Glucose 106 mg/dL (74-106)
[2025-02-19 08:00] VITALS: PULSE 87; RESP 18; O2SAT 95
[2025-02-19 09:00] VITALS: BP 136/79; PULSE 86; RESP 18; TEMP 98.6; O2SAT 95
[2025-02-19] MEDS ORDERED: CEFP200T15 PO (11:08)
--- NOTE | 2025-02-19 13:19 | DVHDSRES ---
Discharge Summary Date of Admission Resident Creating Document: QI LEW RESIDENT Feb 17, 2025 at 15:23 Date of Discharge: Feb 19, 2025 Labs/Diagnostic Data: Laboratory Results Test 02/19/25 04:39 02/18/25 04:38 02/17/25 14:19 02/17/25 11:51 White Blood Count 8.8 10^3/uL (4.4-10.8) Red Blood Count 3.74 10^6/uL (4.0-5.20) Hemoglobin 10.8 g/dL (12.2-16.2) Hematocrit 31.6 % (36.0-46.0) Mean Corpuscular Volume 84.6 fL (80.0-100.0) Mean Corpuscular Hemoglobin 28.8 pg (28.0-32.0) Mean Corpuscular Hemoglobin Concent 34.0 g/dL (32.0-36.0) Red Cell Distribution Width 15.0 % (11.8-14.3) Platelet Count 119 10^3/uL (140-450) Mean Platelet Volume 10.5 fL (6.9-10.8) Neutrophils (%) (Auto) 80.0 % (37.0-80.0) Lymphocytes (%) (Auto) 9.7 % (10.0-50.0) Monocytes (%) (Auto) 8.5 % (0.0-12.0) Eosinophils (%) (Auto) 1.4 % (0.0-7.0) Basophils (%) (Auto) 0.4 % (0.0-2.0) Neutrophils # (Auto) 7.0 10 ^3/uL (1.6-8.6) Lymphocytes # (Auto) 0.9 10 ^3/uL (0.4-5.4) Monocytes # (Auto) 0.8 10 ^3/uL (0-1.3) Eosinophils # (Auto) 0.1 10 ^3/uL (0-0.8) Basophils # (Auto) 0 10 ^3/uL (0-0.2) Nucleated Red Blood Cells 0.0 % Sodium Level 141 mmol/L (136-145) Potassium Level 3.7 mmol/L (3.5-5.1) Chloride Level 107 mmol/L (98-107) Carbon Dioxide Level 26 mmol/L (20-31) Anion Gap 8 (5-15) Blood Urea Nitrogen 9 mg/dL (9-23) Creatinine 0.61 mg/dL (0.550-1.02) Glomerular Filtration Rate Calc 91 mL/min (>90) BUN/Creatinine Ratio 14.8 (10.0-20.0) Serum Glucose 106 mg/dL (74-106) Calcium Level 8.1 mg/dL (8.7-10.4) Total Bilirubin 0.7 mg/dL (0.2-1.0) Aspartate Amino Transferase (AST) 16 U/L (13-40) Alanine Aminotransferase (ALT) 12 U/L (7-40) Alkaline Phosphatase 71 U/L (46-116) Total Protein 5.9 g/dL (5.7-8.2) Albumin 3.6 g/dL (3.2-4.8) Urine Color Light-yellow (Yellow) Urine Clarity Turbid (Clear) Urine pH 6.5 (5.0-9.0) Urine Specific [place] 1.016 (1.001-1.035) Urine Protein 1+ (Negative) Urine Ketones 1+ (Negative) Urine Blood 3+ /uL (Negative) Urine Nitrite 2+ (Negative) Urine Bilirubin Negative (Negative) Urine Urobilinogen Normal mg/dL (Negative) Urine Leukocyte Esterase 2+ /uL (Negative) Urine RBC 12 /hpf (0 - 4) Urine Microscopic WBC 58 /HPF (0-5) Urine Squamous Epithelial Cells None seen /hpf (<5) Urine Bacteria Few /hpf (None Seen) Urine Yeast (Budding) Occasional /hpf (None Urine Glucose Normal mg/dL (Normal) Influenza Type A Antigen Negative (Negative) Influenza Type B Antigen Negative (Negative) SARS-CoV-2 Antigen (Rapid) Negative (NEGATIVE) Test 02/17/25 11:50 02/17/25 11:34 POC Glucose 131 mg/dl (70-106) Prothrombin Time 11.5 sec (9.3-11.8) Prothrombin Time INR 1.09 (0.9-1.15) Activated Partial Thromboplast Time 32.2 SEC (24.5-34.5) Lactic Acid Level 1.5 mmol/L (0.4-2.0) B-Type Natriuretic Peptide 33.75 pg/mL (0-100) Lipase 33 U/L (12-53) Other Laboratory Tests 02/19/25 04:39 Brief Hx & Hospital Course: Brief history on arrival: This is a 79-year-old female with past medical history of hyperlipidemia and osteoarthritis presented with chief complain of generalized weakness that started 1 week back. She complains of 3 week history of increased frequency of micturition, foul-smelling urine. She is traveling from [place] and has been indulging in outdoor activities. She reports associated fever, chills, myalgia & nausea. She denies palpitation, burning micturition injury, insect bite or foul-smelling discharge PV. She had an an episode of UTI 3 years back and she was treated with oral antibiotics. Brief hospital course: Patients vitals showed fever, tachycardia on arrival. Initial labs revealed neutrophilic leukocytosis, urinalysis positive for UTI. Patient was started on IV fluid bolus, IV ceftriaxone, blood cultures were sent. Supportive management with Parker, Tylenol for pain management, IV maintenance fluid, electrolytes monitored and repleted. CT scan shows Right perinephric edema/ stranding, representing urinary tract infection /pyelonephritis. Renal Ultrasound shows no hydronephrosis, possible duplication of the right renal collecting system. The finding of a duplex renal collecting system was explained to the patient in great detail, patient was instructed to follow up with her PCP for a CT urogram, patient notes he follows with a urologist in [place] Dr. Chandler, patient was encouraged to follow up with him at her earliest convenience, patient demonstrated understanding. Patient's clinical condition improved, labs show WBCs within normal limits now. Patient is stable for discharge on oral Antibiotics. 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 for 10 days Continue home medications Follow up with PCP in one week Follow up with Urology in outpatient clinic for CT urogram Operations or Procedures Indication: genraliazed weakness with urgency Technique: CT axial images of the abdomen and pelvis are obtained without contrast. Coronal and sagittal reformats were obtained. Radiation Dose Information: CTDI volume is 7.11 mGy. Dose-length product is 386.5 mGy*cm Comparison: None FINDINGS: There is limited interpretation of the abdomen and pelvis without administration of intravenous contrast. Lung bases demonstrate atelectasis. Tiny bilateral pleural effusions. Adrenal glands, spleen, pancreas and liver unremarkable in shape. No CT evidence for cholelithiasis. The kidneys demonstrate no hydronephrosis. Right perinephric edema / stranding. The stomach is partially distended. The small bowel loops are moderately distended. Colonic diverticular disease. Moderate to large volume stool in the colon. Abdominal aortic atherosclerotic disease. Bladder partially distended. No free pelvic fluid. No inguinal lymphadenopathy. [id number] bilateral sacroiliac degenerative joint disease. IMPRESSION: Limited evaluation without contrast. Right perinephric edema/ stranding. Correlate for urinary tract infection /pyelonephritis. Colonic diverticular disease. Moderate volume stool in the colon. Atherosclerotic disease. Tiny bilateral pleural effusions. Other findings as described. RENAL ULTRASOUND History: Rule out obstruction in the b/l kidneys, ureteres, and blad Comparison: None Technique: Multiple real-time sonographic images of the kidney and bladder were obtained in conjunction with Doppler imaging. Findings: The right kidney measures 10.6 cm and demonstrates no evidence of hydronephrosis, perinephric fluid collection, or shadowing stone. 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 The left kidney measures 9.5 cm and demonstrates no evidence of hydronephrosis, perinephric fluid collection, or shadowing stone. Urinary bladder: Prevoid urinary bladder volume is 137 mL. Bilateral ureteral jets present. Impression: No hydronephrosis. 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 CT urogram can be obtained to further evaluate as clinically warranted. INDICATION: weakness TECHNIQUE: Frontal view of the chest. COMPARISON: None FINDINGS: . The heart and mediastinal contours are grossly unremarkable. There is no evidence of pleural disease. The lungs are clear. The bony structures of the chest are intact without fracture. IMPRESSION: 1. No evidence of acute disease. 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 Generalized weakness due to above Hyponatremia, resolved Hypokalemia, resolved Hyperlipidemia B/L pleural effusions Discharge Disposition: Home Discharge Instruct/Medications Diet: Regular Activity: No Restrictions, As Tolerated Follow Up/Referral: Follow up with Urology in outaptient clinic Follow up in discharge clinic Follow up with PCP in one week Medications: As Per EHR New Medications: Cefpodoxime Proxetil (Cefpodoxime Proxetil) 200 Mg Tab 1 TAB PO BID for 10 Days, #20 TAB Continued Medications: Atorvastatin Calcium (Lipitor) 10 Mg Tab 5 MG PO DAILY, TAB Zolpidem Tartrate (Ambien) 5 Mg Tab 5 MG PO HS, TAB Scheduled Atorvastatin Calcium (Lipitor), 5 MG PO DAILY, (Reported) Cefpodoxime Proxetil (Cefpodoxime Proxetil), 1 TAB PO BID Zolpidem Tartrate (Ambien), 5 MG PO HS, (Reported) Discharge Statement: "Patient was advised to return to the ER or call 911 if any headaches, dizziness, shortness of breath, chest pain, abdominal pain, bleeding, fevers, or worsening of medical condition. Patient was counseled about treatment plan, medications, possible side effects, patientverbalized understanding. All questions were answered to the best of my ability. This discharge took greater then 30 minutes in planning, reviewing documentation, counseling the patient, and discussing with other team members." ASSESSMENT ASSESSMENT Assessment Sepsis due to Complicated UTI with hematuria Generalized weakness due to above Hyponatremia, resolved Hypokalemia, resolved Hyperlipidemia Date of Service: Feb 19, 2025 Billing Provider: LEW RASMUSSEN MD Common Visit Codes: 33539-CHF/OBS DISCH DAY >30min QI LEW RESIDENT Feb 19, 2025 13:19 MIRZA VILLALOBOS RESIDENT Feb 19, 2025 18:21 LEW RASMUSSEN MD Feb 20, 2025 15:02
== END 2025-02-19 14:50 | disposition home or self-care (01) | DRG 872 ==
LOC: ER 11:05 → OVERFLOW 15:23 → TELE-WESTW 17:05 → WEST WING 02-18 16:32
PROVIDERS: ADMIT Internal Medicine Geriatric Medicine; ATTEND Internal Medicine Geriatric Medicine
DX: A41.9 Sepsis, unspecified organism (principal); J90 Pleural effusion, not elsewhere classified; N10 Acute pyelonephritis; E87.1 Hypo-osmolality and hyponatremia; E78.5 Hyperlipidemia, unspecified; R31.9 Hematuria, unspecified; E87.6 Hypokalemia; K57.30 Diverticulosis of large intestine without perforation or abscess without bleeding; Z20.822 Contact with and (suspected) exposure to COVID-19; Z88.8 Allergy status to other drugs, medicaments and biological substances
CPT/HCPCS: 36415; 71045; 74176; 76775; 80048; 80053; 81001; 82962; 83605; 83690; 83880; 84132; 85025; 85610; 85730; 87040; 87086; 87426; 87804; 96361; 96365; 96366; 96375; 99291; G0378; J0131; J2405; J2470